=== PATIENT | male | born 1965 | race Caucasian/White ===

== ENCOUNTER 2024-06-15 10:18 | Emergency (ER) | payer OTHER ==
[~2024-06-15] VITALS: Ht 172.7 cm; Wt 76.3 kg
[2024-06-15 11:00] VITALS: O2SAT 99
[2024-06-15] MEDS: TETANUS, DIPHTHERIA, PERTUSSIS VAC/PF 0.5ML (>10YR OLD) IM ONE (12:00)
[2024-06-15 12:59] VITALS: BP 135/88; PULSE 77; RESP 16; TEMP 36.78072; O2SAT 99
== END 2024-06-15 12:58 | disposition home or self-care (01) ==
LOC: ER 10:43
DX: S61.212A Laceration without foreign body of right middle finger without damage to nail, initial encounter (principal); X58.XXXA Exposure to other specified factors, initial encounter; Y92.89 Other specified places as the place of occurrence of the external cause; Y99.0 Civilian activity done for income or pay; Y93.89 Activity, other specified
CPT/HCPCS: 73140; 90471; 90715; 99283